=== PATIENT | male | born 1980 | race Caucasian/White ===

== ENCOUNTER 2016-12-27 19:37 | Emergency (ER) | payer BC, OTHER | END 2016-12-27 20:40 | disposition home or self-care (01) | LOC: MADERS 19:37 | DX: K52.9 Noninfective gastroenteritis and colitis, unspecified (principal); F17.210 Nicotine dependence, cigarettes, uncomplicated | CPT/HCPCS: 99283 ==

== ENCOUNTER 2017-02-06 06:21 | Emergency (ER) | payer OTHER ==
[2017-02-06] MEDS ORDERED: HYDROcodone/Acetaminophen 5/325 mg Tablet ONE (06:52)
== END 2017-02-06 06:56 | disposition home or self-care (01) ==
LOC: MADERS 06:21
DX: H66.91 Otitis media, unspecified, right ear (principal); F31.9 Bipolar disorder, unspecified; F17.210 Nicotine dependence, cigarettes, uncomplicated
CPT/HCPCS: 99282

== ENCOUNTER 2018-02-01 21:13 | Emergency (ER) | payer OTHER ==
[2018-02-01] MEDS ORDERED: Oxymetazoline HCl 0.05% ( 15 ML ) ONE (21:34)
== END 2018-02-01 21:48 | disposition home or self-care (01) ==
LOC: MADERS 21:13
DX: R09.81 Nasal congestion (principal); F31.9 Bipolar disorder, unspecified; F90.9 Attention-deficit hyperactivity disorder, unspecified type; F17.210 Nicotine dependence, cigarettes, uncomplicated; Z79.899 Other long term (current) drug therapy
CPT/HCPCS: 99283

== ENCOUNTER 2018-07-16 20:21 | Emergency (ER) | payer OTHER ==
--- NOTE | 2018-07-16 21:26 | RAD ---
LEFT HAND THREE VIEWS: 07/16/18 HISTORY: 37-year-old male with history of injury while playing with a dog, pain left hand. FINDINGS/IMPRESSION: No fracture, dislocation, or other significant acute osseous abnormality. POS: [facility]
== END 2018-07-16 20:50 | disposition home or self-care (01) ==
LOC: MADERS 20:21
DX: S60.222A Contusion of left hand, initial encounter (principal); F31.9 Bipolar disorder, unspecified; F90.9 Attention-deficit hyperactivity disorder, unspecified type; F17.210 Nicotine dependence, cigarettes, uncomplicated; W20.8XXA Other cause of strike by thrown, projected or falling object, initial encounter

== ENCOUNTER 2019-10-14 23:09 | Emergency (ER) | payer OTHER, SELFPAY ==
--- NOTE | 2019-10-15 | RAD ---
XR Wrist 3 Rt View STANDARD HISTORY: Injury to wrist. COMPARISON: None. FINDINGS: Minimal arthritic changes are seen. There are no signs of fracture or dislocation. IMPRESSION: No acute injury.
== END 2019-10-15 00:25 | disposition home or self-care (01) ==
LOC: MADERS 23:09
DX: S63.501A Unspecified sprain of right wrist, initial encounter (principal); K21.9 Gastro-esophageal reflux disease without esophagitis; J30.2 Other seasonal allergic rhinitis; F31.9 Bipolar disorder, unspecified; F90.9 Attention-deficit hyperactivity disorder, unspecified type; F17.210 Nicotine dependence, cigarettes, uncomplicated; Z71.6 Tobacco abuse counseling; W17.89XA Other fall from one level to another, initial encounter
CPT/HCPCS: 99406

== ENCOUNTER 2019-12-25 08:58 | Emergency (ER) | payer SELFPAY ==
[2019-12-25 09:43] LABS: #Basophils 0.1 thou/uL (0.0-0.2); #Eosinphils 0.2 thou/uL (0.0-0.7); #Lymphocytes 1.6 thou/uL (1.20-3.40); #Monocytes 0.6 thou/uL (0.11-0.59); #Neutrophils 8.5 thou/uL (1.40-6.50); %Basophils 0.6 % (0.0-1.0); %Eosinophils 2.2 % (0.0-10.0); %Lymphocytes 14.5 % (21.0-51.0); %Monocytes 5.6 % (0.0-10.0); Bilirubin Negative (Negative); Blood, Urine Moderate (Negative); Clarity Clear (Clear); Glucose, Urine (Dipstick) Negative (Negative); Hemoglobin 15.9 g/dL (14.0-18.0); Leukocyte Negative (Negative); Mean Corpuscular HGB CONC 30.9 g/dL (32.0-36.0); Mean Corpuscular Hemoglobin 29.3 pg (27.0-31.0); Mean Corpuscular Volume 94.7 fL (78.0-98.0); Mean Platelet Volume 7.9 fL (7.4-10.4); Nitrite Negative (Negative); Platelet Count 296 thou/uL (130-400); Protein, Urine (Dipstick) Negative (Neg-Trace); RBC Distribution Width 12.7 % (11.5-14.5); Red Blood Cell (RBC) Count 5.45 mill/uL (4.70-6.10); Urobilinogen 0.2 mg/dL (Less than 2)
[2019-12-25 09:51] LABS: Bacteria/HPF Rare-Few HPF (None Seen); Squamous Epithelial 0-3 HPF (0-3); WBC/HPF 0-3 HPF (0-3)
--- NOTE | 2019-12-25 10:23 | CT ---
Exam: Abdomen CT without contrast Pelvic CT without contrast HISTORY: Inability to urinate. Left flank pain. COMPARISON: None FINDINGS: Abdomen CT: Lung bases:Clear Heart size: Normal heart size. No significant pericardial fluid Aorta: Normal caliber aorta. No periaortic fat stranding Solid organs: Limited evaluation by the lack of IV contrast. Grossly no solid organ abnormality Lymph nodes: No gastrohepatic, retrocrural or periportal lymphadenopathy Gallbladder: No CT evidence of cholelithiasis Mesentery: No mass, lymphadenopathy, free air or free fluid Kidneys: Bilaterally, no hydronephrosis, nephrolithiasis or perinephric fat stranding. Right ureter h as a normal caliber. There is mild dilatation of the distal left ureter with periureteral fat stranding. Findings may be secondary to a recently passed calculus. Alimentary canal: Limited evaluation by the lack of oral contrast. Normal caliber small bowel loops. Normal caliber appendix. Normal caliber colon. CT PELVIS: No mass, adenopathy, free air or free fluid. Urinary bladder: Unremarkable. Osseous structures: No lytic or blastic lesions IMPRESSION: 1. Dilatation and periureteral fat stranding involving the distal left ureter, likely due to changes from a recently passed calculus. Bilaterally no obstructive uropathy. 2. Normal caliber appendix. 3. No evidence of bowel obstruction.
== END 2019-12-25 11:00 | disposition home or self-care (01) ==
LOC: MADERS 08:58
DX: N20.0 Calculus of kidney (principal); J30.2 Other seasonal allergic rhinitis; Z87.442 Personal history of urinary calculi; K21.9 Gastro-esophageal reflux disease without esophagitis; F31.9 Bipolar disorder, unspecified; F90.9 Attention-deficit hyperactivity disorder, unspecified type; F17.210 Nicotine dependence, cigarettes, uncomplicated
CPT/HCPCS: 74176; 81003; 81015; 83690; 85025

== ENCOUNTER 2020-07-04 11:16 | Emergency (ER) | payer SELFPAY | END 2020-07-04 12:50 | disposition home or self-care (01) | LOC: MADERS 11:16 | DX: H60.92 Unspecified otitis externa, left ear (principal); K21.9 Gastro-esophageal reflux disease without esophagitis; Z87.442 Personal history of urinary calculi; F17.210 Nicotine dependence, cigarettes, uncomplicated | CPT/HCPCS: 99282 ==

== ENCOUNTER 2020-08-03 12:04 | Emergency (ER) | payer SELFPAY | END 2020-08-03 13:06 | disposition home or self-care (01) | LOC: MADERS 12:04 | DX: G56.21 Lesion of ulnar nerve, right upper limb (principal); K21.9 Gastro-esophageal reflux disease without esophagitis; F17.210 Nicotine dependence, cigarettes, uncomplicated | CPT/HCPCS: 99283 ==

== ENCOUNTER 2021-01-26 17:26 | Emergency (ER) | payer SELFPAY ==
[2021-01-26] MEDS ORDERED: Bacitracin 1 PK ONE (18:41)
== END 2021-01-26 19:26 | disposition home or self-care (01) ==
LOC: MADERS 17:26
DX: T23.222A Burn of second degree of single left finger (nail) except thumb, initial encounter (principal); K21.9 Gastro-esophageal reflux disease without esophagitis; F17.210 Nicotine dependence, cigarettes, uncomplicated; X18.XXXA Contact with other hot metals, initial encounter
CPT/HCPCS: 16020

== ENCOUNTER 2021-08-15 06:25 | Emergency (ER) | payer SELFPAY ==
[2021-08-15] MEDS ORDERED: Ketorolac Tromethamine 30 MG/ML VIAL ONE (06:50)
[2021-08-15] MEDS ORDERED: Sodium Chloride 0.9% 1,000 ML ONE (06:50)
[2021-08-15 07:03] LABS: #Basophils 0.1 thou/uL (0.0-0.2); #Eosinphils 0.2 thou/uL (0.0-0.7); #Lymphocytes 2.2 thou/uL (1.20-3.40); #Neutrophils 5.5 thou/uL (1.40-6.50); %Basophils 0.9 % (0.0-1.0); %Eosinophils 2.7 % (0.0-10.0); %Lymphocytes 24.6 % (21.0-51.0); %Monocytes 11.4 % (0.0-10.0); %Neutrophils 60.4 % (42.0-75.0); Hemoglobin 16.1 g/dL (14.0-18.0); Mean Corpuscular HGB CONC 31.8 g/dL (32.0-36.0); Mean Corpuscular Hemoglobin 29.5 pg (27.0-31.0); Mean Corpuscular Volume 92.9 fL (78.0-98.0); Mean Platelet Volume 7.1 fL (7.4-10.4); Platelet Count 292 thou/uL (130-400); RBC Distribution Width 12.4 % (11.5-14.5); Red Blood Cell (RBC) Count 5.45 mill/uL (4.70-6.10); White Blood Cell (WBC) Count 9.1 thou/uL (4.8-10.8)
[2021-08-15 07:04] LABS: Bilirubin Negative (Negative); Blood, Urine Large (Negative); Clarity Clear (Clear); Glucose, Urine (Dipstick) Negative (Negative); Ketone, Urine Negative (Negative); Leukocyte Negative (Negative); Nitrite Negative (Negative); Protein, Urine (Dipstick) Trace mg/dL (Neg-Trace); Specific Gravity, Urine 1.015 (1.005-1.030); Urobilinogen 0.2 mg/dL (Less than 2); pH, Urine 5.5 (5.0-9.0)
[2021-08-15 07:05] LABS: Bacteria/HPF Rare-Few HPF (None Seen); RBC/HPF 21-50 HPF (0-3); Squamous Epithelial 0-3 HPF (0-3); WBC/HPF 0-3 HPF (0-3)
[2021-08-15] MEDS ORDERED: Ondansetron PF 4 MG/2 ML Vial ONE (07:05)
[2021-08-15] MEDS ORDERED: Lidocaine 2% PF 100 mg/5 ml Syringe ONE ×2 (07:16→07:17)
[2021-08-15] MEDS ORDERED: Sodium Chloride 0.9% 100 ML ONE (07:16)
[2021-08-15 07:17] LABS: ALT (SGPT) 25 U/L (8-55); AST (SGOT) 18 U/L (5-34); Albumin 4.7 g/dL (3.5-5.0); Alkaline Phosphatase 89 U/L (40-110); Anion Gap 13 mmol/L (10-20); BUN (Urea Nitrogen) 13 mg/dL (8.9-20.6); Bilirubin, Total 0.4 mg/dL (0.2-1.2); Calc. Creatinine Clearance 0 mL/min (70-130); Calcium 9.6 mg/dL (7.8-10.44); Carbon Dioxide 29 mmol/L (22-29); Chloride 102 mmol/L (98-107); Globulin 2.8 g/dL (2.4-3.5); Glucose 128 mg/dL (70-105); Potassium 3.5 mmol/L (3.5-5.1); Protein, Total 7.5 g/dL (6.0-8.3); Sodium 140 mmol/L (136-145)
== END 2021-08-15 08:17 | disposition home or self-care (01) ==
LOC: MADERS 06:25
DX: N13.2 Hydronephrosis with renal and ureteral calculous obstruction (principal); K21.9 Gastro-esophageal reflux disease without esophagitis; F17.210 Nicotine dependence, cigarettes, uncomplicated
CPT/HCPCS: 74176; 80053; 81003; 81015; 85025; 96374; 96375; J1885; J2001; J2405; J3490; J7050